=== PATIENT | female | born 1995 | race Caucasian/White ===

== ENCOUNTER 2017-05-04 19:11 | Inpatient (IN) | payer OTHER ==
--- NOTE | 2017-05-04 14:57 | PDOC.LDHP ---
Labor and Delivery H&P Chief complaint: scheduled induction HPI: 21 yo G1 @ 41w4d by LMP c/w 13w1d sono who presents for late term induction. Antepartum course has been benign. Pt was seen by MFM due to family h/o CHD with normal anatomy sono and has been counseled by genetics due to family h/o marfans, pt does not have marfans and no further testing was indicated. Current gestational age (weeks): 41 Dating criteria: last menstrual period Grav: 1 Para: 0 Current complications: none Abnormal US findings: No Past Medical History: Denies Current medications: pre-sierra vitamins Previous surgical history: none Allergies/Adverse Reactions: Allergies Allergy/AdvReac Type Severity Reaction Status Date / Time No Known Allergies Allergy Unverified 05/04/17 19:44 Social history: none - Physical Exam Vital signs reviewed and normal: yes General: NAD FHT: category 1 (140s, mod marine, +accels, no decels) [employer] contractions every: q4-7+ min - Vaginal Exam cm dilated: 2 (per RN) Effacement: 50% Station: -3 - OB Labs Blood type: O RH: positive Antibody Screen: negative HIV: negative RPR: negative HEPSAg: negative 1 hour GCT: negative GBS: positive (on urine culture) Urine drug screen: not done Rubella: immune Additional Labs: SSQ, NT and CF testing all wnl. - Assessment 41w4d IUP Late term induction GBS + urine culture - Plan Plan: admit to L&D, cervical ripening, GBS antibiotic prophylaxis, informed consent obtained, anesthesia consult for pain management
[2017-05-04] MEDS ORDERED: Misoprostol 200 MCG TAB PR PRN (19:36)
[2017-05-04] MEDS ORDERED: Ondansetron HCl/PF 4 MG/2 ML Vial IVP PRN (19:36)
[2017-05-04] MEDS ORDERED: Carboprost 250 MCG/ML AMP IM PRN (19:36)
[2017-05-04] MEDS ORDERED: Promethazine HCl 25 MG/ML VIAL IM PRN (19:36)
[2017-05-04] MEDS ORDERED: Ibuprofen 800 MG TAB PO PRN (19:36)
[2017-05-04] MEDS ORDERED: Lidocaine 1% (PF) 30 ML VIAL SC PRN (19:36)
[2017-05-04] MEDS ORDERED: HYDROcodone/Acetaminophen 5/325 mg Tablet PO PRN (19:36)
[2017-05-04] MEDS ORDERED: LR / Pitocin 40 units/1000 ml 1,000 ML IV PRN (19:36)
[2017-05-04] MEDS ORDERED: Acetaminophen 500 MG TAB PO PRN (19:36)
[2017-05-04] MEDS ORDERED: Diphenoxylate HCl/Atropine Tablet PO PRN (19:36)
[2017-05-04] MEDS ORDERED: Methylergonovine 0.2 MG/ML VIAL IM PRN (19:36)
[2017-05-04] MEDS ORDERED: Penicillin G Potassium 5 MILL.UNITS in Sodium Chloride 0.9% 100 ML IVPB SCH (19:45)
[2017-05-04 20:10] VITALS: BMI 26.2
[2017-05-04 20:50] LABS: Hematocrit 34.5 % (36.0-47.0); Mean Platelet Volume 7.5 fL (7.4-10.4); Red Blood Cell (RBC) Count 3.59 mill/uL (4.20-5.40); White Blood Cell (WBC) Count 9.9 thou/uL (4.8-10.8)
[2017-05-04] MEDS: Misoprostol 100 MCG TAB VAG SCH (23:50)
[2017-05-05] MEDS ORDERED: Fentanyl 4 mcg/Marc 0.1% Cadd 100 ML ONE (01:39)
[2017-05-05] MEDS: Lactated Ringer's 1,000 ML IV SCH ×2 (02:18→08:41)
[2017-05-05] MEDS ORDERED: Fentanyl 100 MCG/2 ML VIAL EPIDURAL SCH (02:30)
[2017-05-05] MEDS ORDERED: Fentanyl 100 MCG/2 ML VIAL ONE (02:37)
[2017-05-05] MEDS ORDERED: Acetaminophen 325 MG TAB PO PRN (02:47)
[2017-05-05] MEDS ORDERED: Promethazine HCl 25 MG/ML VIAL IM PRN ×2 (02:47→05:39)
[2017-05-05] MEDS ORDERED: Eucerin (Mineral Oil/Petrolatum,White) 30 gm Jar TOP PRN (02:47)
[2017-05-05] MEDS ORDERED: Ondansetron HCl/PF 4 MG/2 ML Vial IVP PRN ×2 (02:47→05:39)
[2017-05-05] MEDS ORDERED: Lactated Ringer's 500 ML IV PRN (02:47)
[2017-05-05] MEDS ORDERED: Naloxone HCl 0.4 mg/ml Vial IVP PRN ×2 (02:47)
[2017-05-05] MEDS ORDERED: diphenhydrAMINE 50 MG/ML VIAL IVP PRN (02:47)
[2017-05-05] MEDS ORDERED: ePHEDrine/0.9% NaCl/PF SYRINGE 50 mg/10 ml SLOW IVP PRN (02:47)
[2017-05-05] MEDS ORDERED: Fentanyl 4mcg/Marcaine 0.1% Cassette 100 ML EPIDURAL SCH (03:00)
[2017-05-05] MEDS ORDERED: Communication Order-Pharmacy FS SCH (03:00)
[2017-05-05] MEDS ORDERED: Lanolin Ointment 7 GM TUBE TOP PRN (05:39)
[2017-05-05] MEDS ORDERED: Varicella virus, LIVE 0.5 ML VIAL SC ONE (05:39)
[2017-05-05] MEDS ORDERED: Milk Of Magnesia 30 ML UDCUP PO PRN (05:39)
[2017-05-05] MEDS ORDERED: HYDROcodone/Acetaminophen 5/325 mg Tablet PO PRN ×2 (05:39)
[2017-05-05] MEDS ORDERED: Benzocaine/Menthol 20-0.5% 60 ML CAN TOP PRN (05:39)
[2017-05-05] MEDS ORDERED: Measles/Mumps/Rubella 10 MCG/0.5 ML VIAL SC ONE (05:39)
[2017-05-05] MEDS ORDERED: Preparation H Ointment 28 GM TUBE PR PRN (05:39)
[2017-05-05] MEDS ORDERED: Misoprostol 200 MCG TAB PR PRN (05:39)
[2017-05-05] MEDS ORDERED: diphenhydrAMINE 25 MG CAP PO PRN (05:39)
[2017-05-05] MEDS ORDERED: Bisacodyl 10 MG SUPP PR PRN (05:39)
[2017-05-05] MEDS ORDERED: Methylergonovine 0.2 MG/ML VIAL IM PRN (05:39)
[2017-05-05] MEDS ORDERED: Adacel (T-DAP) 0.5 ML VIAL IM ONE (05:39)
--- NOTE | 2017-05-05 05:42 | PDOC.OPDEL ---
OB Operative/Delivery Note Delivery Dr/Surgeon: Trena Cardoza MD Pre-Delivery Diagnosis: medically indicated induction Procedure/Post Delivery Dx: spontaneous vaginal delivery Weeks gestation: 41 Anesthesia: epidural - Findings A Sex: female ("Dana") Weight: 7 lb 3.593 oz - 1 min: 8 - 5 min: 9 - Additional Findings/Plan Placenta delivered: spontaneous Repaired Obstetrical Laceration: 2nd degree (and left labial)
[2017-05-05] MEDS ORDERED: LR / Pitocin 40 units/1000 ml 1,000 ML IV SCH (05:45)
[2017-05-05] MEDS ORDERED: LR 500 ML/Oxytocin 10 units 500 ML IV SCH (06:00)
[2017-05-05] MEDS: Ferrous Sulfate 325 MG TAB PO SCH ×2 (08:37→17:27)
[2017-05-05] MEDS: Penicillin G 2.5 MILL.units 2.5 MILL.UNITS in Premix Bag 1 BAG IVPB SCH ×2 (08:39→08:40)
[2017-05-05] MEDS: Misoprostol 100 MCG TAB VAG SCH (08:40)
[2017-05-05] MEDS: Ibuprofen 800 MG TAB PO SCH ×3 (11:30→21:18)
[2017-05-05] MEDS: Prenatal Vitamin 1 TAB PO SCH (11:31)
[2017-05-05] MEDS: Docusate Calcium (SURFAK) 240 MG CAP PO SCH ×2 (11:32→21:18)
[2017-05-05] MEDS ORDERED: Bupivacaine/Epinephrine 0.25% 30 ML VIAL ONE (15:50)
[2017-05-06] MEDS: Ibuprofen 800 MG TAB PO SCH ×3 (05:49→20:54)
--- NOTE | 2017-05-06 08:29 | PDOC.PP ---
Post Progress Note Post Day #: 1 Subjective: Doing well. Pain controlled. Minimal lochia. PO intake tolerated: yes Flatus: yes Ambulation: yes Vital Signs (12 hours) Temp Pulse Resp BP 05/06/17 08:00 97.9 F 77 18 123/77 05/06/17 05:47 98.0 F 80 18 107/65 05/06/17 00:39 97.9 F 81 18 115/72 Weight Weight 158 lb - Physical Examination General: NAD Cardiovascular: RRR Respiratory: non-labored breathing Abdominal: no distention, appropriately TTP Fundus firm & at: below umbilicus Extremities: negative homans (B) Neurological: no gross focal deficits Psychiatric: A&Ox3 Result Diagrams: 05/04/17 20:39 Additional Labs: Post Labs Blood Type O POSITIVE 05/04/17 20:39 Hep Bs Antigen Non-Reactive S/CO (NonReactive) 05/04/17 20:39 (1) Vaginal delivery Code(s): O80 - ENCOUNTER FOR FULL-TERM UNCOMPLICATED DELIVERY Status: Acute - Assessment/Plan Continue post care. Plan for d/c tomorrow as did not receive adequate GBX PPX prior to delivery.
[2017-05-06] MEDS ORDERED: traMADol HCl 50 MG TAB PO PRN (08:30)
[2017-05-06] MEDS: Docusate Calcium (SURFAK) 240 MG CAP PO SCH ×2 (10:09→20:54)
[2017-05-06] MEDS: Prenatal Vitamin 1 TAB PO SCH (10:09)
[2017-05-06] MEDS: Ferrous Sulfate 325 MG TAB PO SCH ×2 (10:10→18:14)
[2017-05-07] MEDS: Ibuprofen 800 MG TAB PO SCH ×2 (06:23→13:56)
[2017-05-07 08:09] VITALS: BP 124/61; TEMP 97.9
--- NOTE | 2017-05-07 08:24 | PDOC.PP ---
Post Progress Note Post Day #: 2 Subjective: Doing well. No concerns. Minimal lochia, pain controlled. Breast/pumping. PO intake tolerated: yes Flatus: yes Ambulation: yes Vital Signs (12 hours) Temp Pulse Resp BP 05/07/17 08:00 97.9 F 81 20 124/61 Weight Weight 158 lb - Physical Examination General: NAD Cardiovascular: RRR Respiratory: non-labored breathing Abdominal: no distention, appropriately TTP Fundus firm & at: below umbilicus Extremities: negative homans (B) Neurological: no gross focal deficits Psychiatric: A&Ox3 Result Diagrams: 05/04/17 20:39 Additional Labs: Post Labs Blood Type O POSITIVE 05/04/17 20:39 Hep Bs Antigen Non-Reactive S/CO (NonReactive) 05/04/17 20:39 (1) Vaginal delivery Code(s): O80 - ENCOUNTER FOR FULL-TERM UNCOMPLICATED DELIVERY Status: Acute - Assessment/Plan Stable for d/c home. F/U 6 weeks for PP
[2017-05-07] MEDS: Docusate Calcium (SURFAK) 240 MG CAP PO SCH (08:56)
[2017-05-07] MEDS: Prenatal Vitamin 1 TAB PO SCH (08:57)
[2017-05-07] MEDS: Ferrous Sulfate 325 MG TAB PO SCH (08:57)
== END 2017-05-07 15:05 | disposition home or self-care (01) | DRG 775 ==
LOC: L&D 19:11 → 3SW 05-05 07:49
PROVIDERS: ADMIT Obstetrics & Gynecology; ATTEND Obstetrics & Gynecology
PROC: 3E0P7VZ Introduction of Hormone into Female Reproductive, Via Natural or Artificial Opening (ICD-10-PCS; 2017-05-04)
PROC: 10E0XZZ Delivery of Products of Conception, External Approach (ICD-10-PCS; principal; 2017-05-05)
PROC: 0KQM0ZZ Repair Perineum Muscle, Open Approach (ICD-10-PCS; 2017-05-05)
DX: O70.1 Second degree perineal laceration during delivery (principal); Z37.0 Single live birth; O99.824 Streptococcus B carrier state complicating childbirth; Z3A.41 41 weeks gestation of pregnancy
CPT/HCPCS: 36415; 85027; 86780; 86850; 86900; 86901; 87340; 87389; J0595; J2540; J3010; J7050